=== PATIENT | female | born 1985 | race African-American/Black ===

== ENCOUNTER 2018-03-17 05:23 | Day surgery (SDC) | payer OTHER ==
[2018-03-13 19:34] VITALS: BMI 30.8
[~2018-03-17 05:23] MED LIST: BUPIVACAINE HCL/PF (5 MG/ML) 30 ML VIAL IJ ONE; ceFAZolin SODIUM 1 GM VIAL IVPB ONE
[2018-03-17] MEDS ORDERED: ePHEDrine SULFATE 50 MG/1 ML AMPULE ONE (07:30)
[2018-03-17] MEDS ORDERED: ROCURONIUM BROMIDE 50 MG/5 ML VIAL ONE ×2 (07:31→09:29)
[2018-03-17] MEDS ORDERED: fentaNYL CITRATE 250 MCG/5 ML VIAL ONE (07:31)
[2018-03-17] MEDS ORDERED: SUCCINYLCHOLINE CHLORIDE 200 MG/10 ML VIAL ONE (07:31)
[2018-03-17] MEDS ORDERED: MIDAZOLAM HCL 2 MG/2 ML SINGLE DOSE VIAL ONE (07:31)
[2018-03-17] MEDS ORDERED: PROPOFOL 20 ML ONE (07:31)
[2018-03-17] MEDS ORDERED: BUPIVACAINE HCL/PF 0.5% (5MG/ML) 10 ML VIAL ONE (07:35)
[2018-03-17] MEDS ORDERED: ceFAZolin SODIUM 1 GM VIAL ONE (08:32)
[2018-03-17] MEDS ORDERED: ceFAZolin SODIUM 1 GM VIAL IVPB ONE (08:50)
[2018-03-17] MEDS ORDERED: BUPIVACAINE HCL/PF (5 MG/ML) 30 ML VIAL IJ ONE (10:25)
[2018-03-17] MEDS ORDERED: IBUPROFEN 800 MG/8 ML IJ IVPB PRN (10:36)
[2018-03-17] MEDS ORDERED: IBUPROFEN 600 MG TABLET (FP) PO PRN (10:36)
[2018-03-17] MEDS ORDERED: oxyCODONE HCL 5 MG TABLET PO PRN ×2 (10:36→11:17)
[2018-03-17] MEDS ORDERED: ONDANSETRON 4 MG/2 ML VIAL IVPUSH PRN (10:36)
--- NOTE | 2018-03-17 10:41 | OP ---
Operative Note - Note: Operative Date: 03/17/18 Pre-Operative Diagnosis: Right 8cm dermoid cyst of the ovary Operation: Laparoscopic Right cystectomy Findings: Large R ovarian cyst with very little normal ovarian tissue Post-Operative Diagnosis: Same as Pre-op Surgeon: Edwige Lerma Turning Lathe Tender: Eder Smith Anesthesiologist/SPLITTING MACHINE OPERATOR: Jose Disla Anesthesia: General Specimens Removed: Right ovarian cyst Estimated Blood Loss (mls): 5 Drains, Volume Out (mls): 400 Fluid Volume Replaced (mls): 500 Operative Report Dictated: Yes
--- NOTE | 2018-03-17 10:41 | HP ---
History & Physical Update - History History: No Change - Physical Physical: No Change - Assessment Assessment: No Change - Plan Plan: No Change (Consent signed and witnessed)
[2018-03-17] MEDS ORDERED: ELECTROLYTE-148 SOLN 1,000 ML IV SCH (10:45)
[2018-03-17] MEDS ORDERED: LACTATED RINGERS SOLUTION 1,000 ML IV SCH (11:30)
[2018-03-17] MEDS ORDERED: ONDANSETRON 4 MG/2 ML VIAL IVPUSH ONE (13:16)
[2018-03-17] MEDS ORDERED: ONDANSETRON 4 MG/2 ML VIAL ONE (13:19)
[2018-03-17 13:31] VITALS: TEMP 97.4
[2018-03-17] MEDS ORDERED: oxyCODONE HCL 5 MG TABLET PO ONE (15:27)
[2018-03-17] MEDS ORDERED: oxyCODONE HCL 5 MG TABLET ONE (15:29)
[2018-03-17] MEDS ORDERED: PROMETHAZINE HCL 25 MG/1 ML VIAL IVPUSH ONE ×2 (16:06→16:22)
[2018-03-17 17:43] VITALS: BP 136/85; PULSE 74
--- NOTE | 2018-03-19 18:13 | PATH ---
Surgical Pathology Report Patient Name: MAUDE DAMICO [facility]. Rec. #: [id number] /Age/Gender: 1985 (Age: 33) / F Account: [id number] Location: [facility] SURGICAL Taken: 03/17/2018 Received: 03/17/2018 Reported: 03/19/2018 Physicians: Edwige Lerma M.D. Specimen(s) Received RIGHT OVARIAN DERMOID CYST Clinical History Mature cystic teratoma of right ovary Final Diagnosis RIGHT OVARIAN DERMOID CYST, EXCISION: MATURE CYSTIC TERATOMA. Electronically Signed Almaz Fuller M.D. Gross Description Received in formalin labeled "right ovarian dermoid cyst," is a 7.5 x 5.5 x 1.8 cm john, disrupted cyst. The outer surface is john and smooth with multifocal defects. The lumen contains abundant john sebaceous material and hair. Sectioning reveals a calcified focus of tissue. Cloth Carrier sections are submitted in 9 cassettes (cassette 1 following decalcification). /03/18/2018 [facility]03/18/2018
--- NOTE | 2018-03-21 09:11 | PATH ---
Cytology Non-Gynecological Report Patient Name: MAUDE DAMICO [facility]. Rec. #: [id number] /Age/Gender: 1985 (Age: 33) / F Account: [id number] Location: [facility] SURGICAL Taken: 03/17/2018 Received: 03/18/2018 Reported: 03/21/2018 Physicians: Edwige Lerma M.D. Specimen(s) Received PERITONEAL FLUID GASTRIC Clinical History Ovarian mature cystic teratoma Final Diagnosis PERITONEAL FLUID FOR CYTOLOGY: SATISFACTORY FOR EVALUATION. NEGATIVE FOR MALIGNANCY. REACTIVE MESOTHELIAL CELLS, MACROPHAGES AND RARE LYMPHOCYTES PRESENT. Comment: Also see concurrent surgical report [id number]. Electronically Signed Almaz Fuller M.D. Gross Description Approximately 30cc of bloody fluid received. One slide and one cellblock prepared.
--- NOTE | 2018-03-23 19:15 | OP ---
DATE OF OPERATION: 03/17/2018 PREOPERATIVE DIAGNOSIS: Right 8-cm dermoid cyst of the ovary. POSTOPERATIVE DIAGNOSIS: Right 8-cm dermoid cyst of the ovary. OPERATION: Laparoscopic right cystectomy. FINDINGS: Large right ovarian cyst, more likely 10 cm in size. There was very little normal ovarian tissue remaining. SURGEON: Edwige Lerma MD SENIOR FINANCE MANAGER: Eder Smith MD ANESTHESIOLOGIST: Jose Disla MD ANESTHESIA: General. SPECIMEN REMOVED: Right ovarian cyst. DESCRIPTION OF OPERATIVE PROCEDURE: After assuring informed consent, the patient was brought to the operating room where she was received general anesthesia, was placed in the dorsal lithotomy position. Abdomen and perineum were prepped and draped in a sterile fashion. The uterine manipulator was placed sterilely as well as a urinary catheter. Subsequently the laparoscopic equipment was assembled . The umbilical 5-mm incision was made with the scalpel and Veress needle was placed through the incision atraumatically. The normal saline drop test was performed and was positive entry into the abdominal cavity. The abdomen was insufflated with 2 L of CO2 gas. The Optiview laparoscopic trocar was introduced with the 5-mm 0-degree scope with good visualization of underlying tissue. Abdomen was further insufflated. Abdominal inspection was performed and abdomen was found to be free of any disease. Normal appendix visualized, normal left ovary visualized and grossly very abnormal, enlarged right ovary with approximately 10-cm ovarian cyst was noted. Subsequently an additional 3 ports were needed, 2 bilateral lower quadrants were created as well as left 10-mm port in the midclavicular line was placed, a 15-mm port through which the 15-mm EndoCatch bag was introduced. The cyst was placed into the EndoCatch bag and Gyrus device was used with traction and countertraction to dissect the ovarian cyst with a very small amount of remaining normal ovarian stroma. The majority of contents of the cyst were collected, were placed in an EndoCatch bag and removed from the abdomen. Once cyst contents were removed and sent for pathology the ovary remaining, the right ovary was inspected, was found to be hemostatic. The abdomen was copiously irrigated with normal saline and was found to be free of any cyst contents. Subsequently the 15-mm trocar was removed and the 15-mm incision, the fascia was closed in 2 interrupted 0-Vicryl sutures. All gas was removed from the abdomen and the remaining trocars were removed. Skin was closed on all 5-mm laparoscopic incision. A 0.25% Marcaine solution was injected into abdominal laparoscopic puncture incisions. The incisions were closed with Dermabond and OpSite. The patient was placed back into supine position. Hdez catheter and uterine manipulator removed. The patient was brought to the recovery room in stable condition. Instrument and sponge count was correct x2. Estimated blood loss 5 mL. Urine output 400 mL. The patient received 500 mL of IV fluids. Mini [id number]
== END 2018-03-17 17:35 | disposition home or self-care (01) ==
LOC: JASU-SURG 05:23
PROVIDERS: ATTEND Obstetrics & Gynecology
PROC: 0UB04ZZ Excision of Right Ovary, Percutaneous Endoscopic Approach (ICD-10-PCS; principal; 2018-03-17 08:00)
DX: D27.0 Benign neoplasm of right ovary (principal)
CPT/HCPCS: 87086; 88108; 88305-TC; 88307-TC; 94760

== ENCOUNTER 2018-06-03 06:08 | Day surgery (SDC) | payer OTHER ==
[2018-05-30 14:06] VITALS: BMI 31.1
[2018-06-03] MEDS ORDERED: PROPOFOL 20 ML ONE ×3 (07:22→07:54)
[2018-06-03] MEDS ORDERED: SUCCINYLCHOLINE CHLORIDE 200 MG/10 ML VIAL ONE (07:22)
[2018-06-03] MEDS ORDERED: LIDOCAINE HCL/PF 2% SDV 5ML VIAL ONE (07:23)
[2018-06-03] MEDS ORDERED: MIDAZOLAM HCL 2 MG/2 ML SINGLE DOSE VIAL ONE (07:23)
--- NOTE | 2018-06-03 07:31 | HP ---
History & Physical Update - History History: No Change - Physical Physical: No Change - Assessment Assessment: No Change - Plan Plan: No Change (Patient seen and examined and there are no changes with H&P on 05/03/18. Will proceed with IUD removal, possible Hysteroscopy)
[2018-06-03] MEDS ORDERED: DEXAMETHASONE SOD PHOSPHATE 4 MG/1 ML VIAL ONE ×2 (07:40→08:14)
[2018-06-03] MEDS ORDERED: KETOROLAC TROMETHAMINE 30 MG/1 ML VIAL ONE (07:54)
[2018-06-03] MEDS ORDERED: DEXMEDETOMIDINE HCL 200 MCG/2 ML IVPB ONE (08:14)
[2018-06-03] MEDS ORDERED: IBUPROFEN 600 MG TABLET (FP) PO PRN (08:19)
[2018-06-03] MEDS ORDERED: oxyCODONE HCL 5 MG TABLET PO PRN (08:19)
[2018-06-03] MEDS ORDERED: ONDANSETRON 4 MG/2 ML VIAL IVPUSH PRN ×2 (08:19→08:43)
[2018-06-03] MEDS ORDERED: IBUPROFEN 800 MG/8 ML IJ IVPB PRN (08:19)
--- NOTE | 2018-06-03 08:28 | OP ---
Operative Note - Note: Operative Date: 06/03/18 Pre-Operative Diagnosis: 33yo P2 with retained IUD desiring fertility Operation: IUD removal Findings: Paraguard IUD removed Surgeon: Edwige Lerma Anesthesiologist/PACKAGE CLERK: Raymond Sinclair Anesthesia: MAC Specimens Removed: Paraguard IUD Estimated Blood Loss (mls): 0 Drains, Volume Out (mls): 50 Fluid Volume Replaced (mls): 400 Operative Report Dictated: Yes
[2018-06-03] MEDS ORDERED: ELECTROLYTE-148 SOLN 1,000 ML IV SCH (08:30)
[2018-06-03] MEDS ORDERED: LACTATED RINGERS SOLUTION 1,000 ML IV SCH (08:45)
--- NOTE | 2018-06-03 10:32 | OP ---
DATE OF OPERATION: 06/03/2018 PREOPERATIVE DIAGNOSIS: A 33-year-old para 2 with retained intrauterine device desiring fertility. OPERATION: Intrauterine device removal. FINDINGS: ParaGard IUD removed. SURGEON: Edwige Lerma MD ANESTHESIOLOGIST: Raymond Sinclair MD ANESTHESIA: MAC SPECIMEN REMOVED: ParaGard. DESCRIPTION OF THE OPERATIVE PROCEDURE: After ensuring informed consent, the patient was brought to the operating room where she was placed in dorsal lithotomy position. Perineum and vagina were prepped and draped in sterile fashion. The Joyce retractors were placed into the vagina. Anterior lip of the cervix was articulated with single-toothed tenaculum, and cervix was gradually dilated with serial dilators up to gauge 19. The IUD removal hook was introduced into the uterus and IUD was brought to the cervical os, removed with polyp forceps intact, and sent to the pathologist. Estimated blood loss zero. Patient received 400 mL of IV fluids and had 50 mL of urine output. All instruments and sponge counts were correct x2. Patient was brought to the recovery room in stable condition. Mini [id number]
[2018-06-03 10:36] VITALS: BP 132/75; PULSE 78; TEMP 98
--- NOTE | 2018-06-04 10:46 | PATH ---
Surgical Pathology Report Patient Name: MAUDE DAMICO [facility]. Rec. #: [id number] /Age/Gender: 1985 (Age: 33) / F Account: [id number] Location: [facility] SURGICAL Taken: 06/03/2018 Received: 06/03/2018 Reported: 06/04/2018 Physicians: Edwige Lerma M.D. Specimen(s) Received IUD Clinical History Removal IUD, dilation and curettage Final Diagnosis INTRAUTERINE DEVICE (IUD), REMOVAL: FOREIGN BODY MATERIAL CONSISTENT WITH INTRAUTERINE DEVICE (IUD). MACROSCOPIC DIAGNOSIS. Electronically Signed Anabelle Mcdermott M.D. Gross Description Received in formalin labeled "IUD," is a 3.5 cm in length T. Shaped device with attached string, consistent with an IUD. No soft tissue is present. No sections are submitted, gross only. /06/03/2018 [facility]06/03/2018
== END 2018-06-03 10:36 | disposition home or self-care (01) ==
LOC: JASU-SURG 06:08
PROVIDERS: ATTEND Obstetrics & Gynecology
PROC: 0UPD7HZ Removal of Contraceptive Device from Uterus and Cervix, Via Natural or Artificial Opening (ICD-10-PCS; principal; 2018-06-03 07:30)
DX: Z30.432 Encounter for removal of intrauterine contraceptive device (principal)
CPT/HCPCS: 84703; 88300-TC; 94760